=== PATIENT | female | born 1960 | race Two or more races ===

== ENCOUNTER 2021-07-27 15:39 | Outpatient (REF) | payer MEDICAID, OTHER, SELFPAY ==
--- NOTE | ~2021-07-27 | MM_ITS ---
EXAMINATION: MM SCREENING DIGITAL BREAST TOMOSYNTHESIS, BILATERAL CLINICAL INFORMATION: Screening. Asymptomatic. No prior breast imaging. Age 61. No known family history breast cancer. The lifetime risk of breast cancer based on the Tyrer-Cuzick Model is 5%. COMPARISON: None (current study represents initial baseline exam). TECHNIQUE: Digital breast tomosynthesis is performed in both the craniocaudal and mediolateral oblique views along with computer-aided detection (CAD). Synthesized 2D images are generated from the tomosynthesis. FINDINGS: There are scattered areas of fibroglandular density (ACR BI-RADS breast composition Category b). There are scattered parenchymal and stromal densities without significant masses, abnormal calcifications, or other abnormalities. The axilla and skin contours are unremarkable. MM/MM tomosynthesis screening BI IMPRESSION: No mammographic evidence of malignancy. ASSESSMENT: BI-RADS 1: Negative RECOMMENDATION: Routine annual mammography screening. This patient's information was entered into a reminder system with a target due date for their next mammogram.
== END 2021-07-27 15:40 | disposition home or self-care (01) ==
LOC: HO.MAMMO 15:39
PROVIDERS: PCP Family Medicine; Visit Provider Family Medicine
DX: Z12.31 Encounter for screening mammogram for malignant neoplasm of breast (principal)
CPT/HCPCS: 77063; 77067

== ENCOUNTER 2022-05-22 11:21 | Outpatient (REF) | payer MEDICAID, OTHER, SELFPAY ==
--- NOTE | ~2022-05-22 | XR_ITS ---
EXAMINATION: XR LUMBOSACRAL SPINE CLINICAL INFORMATION: Low back pain, pain in right leg. COMPARISON: None TECHNIQUE: Three views of the lumbosacral spine. FINDINGS: Normal lumbar segmentation with 5 nonrib-bearing lumbar vertebrae of normal height and normal lumbar lordosis. There is mild dextrocurvature lumbar spine. No lumbar vertebral compression or destructive process. There are prominent degenerative disc changes L4-L5 with disc narrowing and endplate sclerosis and vertebral spurring. There is mild disc narrowing L3-L4 with borderline grade 0-1 spondylolisthesis. There is facet degeneration greatest L4-S1. The SI joints show no diastases or erosive change. Visualized sacrum are unremarkable. XR/XR lumbar spine 2-3V IMPRESSION: -Mild dextrocurvature. No vertebral compression or destructive process. -Prominent degenerative disc changes L4-L5. Facet degeneration L4-S1. -Mild disc narrowing L3-L4 with grade 0-1 spondylolisthesis.
== END 2022-05-22 11:22 | disposition home or self-care (01) ==
LOC: HO.XRAY 11:21
PROVIDERS: PCP Family Medicine; Visit Provider Family Medicine
DX: M54.50 Low back pain, unspecified (principal); M79.604 Pain in right leg
CPT/HCPCS: 72100